=== PATIENT | female | born 1950 | race Caucasian/White ===

== ENCOUNTER 2020-09-08 10:36 | Emergency (ER) | payer MEDICARE, OTHER ==
[2020-09-08] MEDS ORDERED: NORCO 5-325 TA1 EACH PO ×2 (12:35)
== END 2020-09-08 12:50 | disposition home or self-care (01) ==
LOC: FER 10:36
DX: S00.83XA Contusion of other part of head, initial encounter (principal); R22.42 Localized swelling, mass and lump, left lower limb; W01.190A Fall on same level from slipping, tripping and stumbling with subsequent striking against furniture, initial encounter; Y92.009 Unspecified place in unspecified non-institutional (private) residence as the place of occurrence of the external cause
CPT/HCPCS: 70450; 70486; 72125